=== PATIENT | female | born 1930 | race Caucasian/White ===

== ENCOUNTER 2018-01-14 07:54 | Inpatient (IN) | payer MEDICARE, BC ==
[~2018-01-14] VITALS: Ht 165.1 cm; Wt 59.0 kg
[~2018-01-14 07:54] MED LIST: ATIVAN0.5 MG PO; ATROVENT 0.02%2.5 ML UPD; BENZONATATE200 MG PO; CARDIZEM CD180 MG PO; CARDIZEM60 MG PO; CLARITIN10 MG/TAB PO; CORGARD20 MG PO; COUMADIN3 MG PO; COUMADIN4 MG PO; COUMADIN5 MG PO; CRESTOR5 MG PO; LEVAQUIN750 MG PO; MUCINEX DM ER1 EAC1 PO; PEPCID20 MG PO; PRILOSEC20 MG PO; PROBIOTIC1 EAC1 PO; PROVENTIL/2.5 MG/3 M INH; REGLAN5 MG PO; REMERON15 MG PO; TOPROL XL25 MG
[2018-01-14 08:43] LABS: BASOPHILS 0 % (0-2); EOSINOPHILS 0 % (0-7); HEMATOCRIT 38.8 % (36.0-48.0); HEMOGLOBIN 13.3 g/dL (12-16); LYMPHOCYTES 7.1 % (15-50); MCH 32.5 pg (26.0-34.0); MCHC 34.3 g/dL (31.0-37.0); MCV 94.9 fL (80.0-100.0); MEAN PLATELET VOLUME 9.5 fL (7.4-10.4); MONOCYTES 8.1 % (2-11); NEUTROPHILS 84.8 % (40-80); PLATELET COUNT 108 10x3/uL (130-400); RBC 4.09 10x6/uL (4.00-5.40); RDW 13.4 % (11.5-14.5); WBC 4.1 10x3/uL (4.8-10.8)
[2018-01-14 08:58] LABS: ALBUMIN 3.3 g/dL (3.4-5.0); BILIRUBIN - TOTAL 0.61 mg/dL (0.2-1.3); CALCIUM 8.2 mg/dL (8.5-10.1); CARBON DIOXIDE 21.9 mmol/L (21.0-32.0); POTASSIUM - SERUM 3.9 mmol/L (3.5-5.1)
[2018-01-14 10:11] LABS: APPEARANCE HAZY (CLEAR); BILIRUBIN NEGATIVE (NEGATIVE); COLOR YELLOW (YELLOW); GLUCOSE NEGATIVE (NEGATIVE); KETONE SMALL mg/dL (NEGATIVE); NITRITE NEGATIVE (NEGATIVE); PROTEIN NEGATIVE (NEGATIVE); SPECIFIC GRAVITY 1.015 (1.005-1.020); UROBILINOGEN NORMAL (NORMAL)
[2018-01-14 10:20] LABS: BACTERIA MODERATE /hpf (NONE SEEN); EPITHELIAL CELLS 0-5 /hpf (0-5); MUCUS >1+ /lpf (NONE SEEN); RED CELLS - URINE 0-5 /hpf (0-5); WHITE CELLS - URINE 0-5 /hpf (0-5)
[2018-01-14] MEDS ORDERED: SINGULAIR10 MG PO (15:44)
[2018-01-14] MEDS ORDERED: XANAX0.25 MG PO (15:46)
[2018-01-14] MEDS ORDERED: BETAPACE 80 MG80 MG PO (15:46)
[2018-01-14] MEDS ORDERED: LIPITOR20 MG PO (15:46)
[2018-01-14 18:11] VITALS: BMI 21.6
[2018-01-14 20:00] VITALS: BP 139/68
[2018-01-15] VITALS: BP 114/49
[2018-01-15 04:00] VITALS: BP 115/45
[2018-01-15 06:11] LABS: BASOPHILS 0.2 % (0-2); EOSINOPHILS 0 % (0-7); HEMATOCRIT 40.4 % (36.0-48.0); HEMOGLOBIN 13.9 g/dL (12-16); LYMPHOCYTES 9.1 % (15-50); MCH 32.7 pg (26.0-34.0); MCHC 34.4 g/dL (31.0-37.0); MCV 95.1 fL (80.0-100.0); MEAN PLATELET VOLUME 9.5 fL (7.4-10.4); MONOCYTES 5.6 % (2-11); NEUTROPHILS 85.1 % (40-80); PLATELET COUNT 98 10x3/uL (130-400); RBC 4.25 10x6/uL (4.00-5.40); RDW 13.6 % (11.5-14.5); WBC 4.6 10x3/uL (4.8-10.8)
[2018-01-15 06:30] LABS: INR 2.28 (0.85-1.17); PROTIME 24.5 SECONDS (11.6-15.0)
[2018-01-15 07:13] LABS: PLATELET ESTIMATE DECREASED
[2018-01-15 07:22] LABS: ALBUMIN 2.8 g/dL (3.4-5.0); ANION GAP 14.7 mmol/L (8-16); BILIRUBIN - TOTAL 0.46 mg/dL (0.2-1.3); CALCIUM 7.9 mg/dL (8.5-10.1); CARBON DIOXIDE 24.5 mmol/L (21.0-32.0); CREATININE - SERUM 0.9 mg/dL (0.6-1.3); MAGNESIUM - SERUM 1.9 mg/dL (1.8-2.4); PHOSPHOROUS 3.9 mg/dL (2.5-4.9); POTASSIUM - SERUM 4.2 mmol/L (3.5-5.1); PROTEIN - SERUM 6.8 g/dL (6.4-8.2)
[2018-01-15 08:27] VITALS: BP 113/59
[2018-01-15 12:29] VITALS: BP 105/51
[2018-01-15 14:23] VITALS: BMI 21.6
[2018-01-15 16:48] VITALS: BP 110/65
[2018-01-15 20:00] VITALS: BP 124/69
[2018-01-16 04:00] VITALS: BP 172/61
[2018-01-16 07:15] LABS: BASOPHILS 0.2 % (0-2); EOSINOPHILS 0 % (0-7); HEMATOCRIT 43.7 % (36.0-48.0); HEMOGLOBIN 14.9 g/dL (12-16); LYMPHOCYTES 12.2 % (15-50); MCHC 34.1 g/dL (31.0-37.0); MEAN PLATELET VOLUME 9.6 fL (7.4-10.4); MONOCYTES 3.9 % (2-11); NEUTROPHILS 83.7 % (40-80); PLATELET COUNT 97 10x3/uL (130-400); RBC 4.65 10x6/uL (4.00-5.40); RDW 13.3 % (11.5-14.5); WBC 5.2 10x3/uL (4.8-10.8)
[2018-01-16 07:31] LABS: INR 2.55 (0.85-1.17); PROTIME 26.8 SECONDS (11.6-15.0)
[2018-01-16 07:54] LABS: ALBUMIN 2.8 g/dL (3.4-5.0); ANION GAP 15.3 mmol/L (8-16); BILIRUBIN - TOTAL 0.41 mg/dL (0.2-1.3); CALCIUM 8.4 mg/dL (8.5-10.1); PHOSPHOROUS 2.3 mg/dL (2.5-4.9); POTASSIUM - SERUM 4.3 mmol/L (3.5-5.1)
[2018-01-16 08:39] VITALS: Ht 165.1 cm; Wt 59.0 kg
[2018-01-16 09:15] VITALS: BP 113/44
[2018-01-16 14:25] VITALS: BP 107/78
[2018-01-16 17:06] VITALS: BP 104/44
[2018-01-16 20:00] VITALS: BP 109/51
[2018-01-17 04:00] VITALS: BP 97/49
[2018-01-17 06:42] LABS: BASOPHILS 0.7 % (0-2); EOSINOPHILS 0.2 % (0-7); HEMATOCRIT 40.5 % (36.0-48.0); HEMOGLOBIN 14.1 g/dL (12-16); IMMATURE GRANULOCYTES 0.2 % (0-5); MCH 32.5 pg (26.0-34.0); MCHC 34.8 g/dL (31.0-37.0); MCV 93.3 fL (80.0-100.0); MONOCYTES 8.4 % (2-11); NEUTROPHILS 59.5 % (40-80); PLATELET COUNT 92 10x3/uL (130-400); RBC 4.34 10x6/uL (4.00-5.40); RDW 13.2 % (11.5-14.5); WBC 4.2 10x3/uL (4.8-10.8)
[2018-01-17 07:03] LABS: INR 1.61 (0.85-1.17); PROTIME 18.7 SECONDS (11.6-15.0)
[2018-01-17 07:16] LABS: ALBUMIN 2.4 g/dL (3.4-5.0); BILIRUBIN - TOTAL 0.4 mg/dL (0.2-1.3); CARBON DIOXIDE 24.2 mmol/L (21.0-32.0); CREATININE - SERUM 0.8 mg/dL (0.6-1.3); PHOSPHOROUS 2.5 mg/dL (2.5-4.9); PROTEIN - SERUM 6.3 g/dL (6.4-8.2)
[2018-01-17 07:18] LABS: ANION GAP 11.3 mmol/L (8-16); POTASSIUM - SERUM 3.5 mmol/L (3.5-5.1)
[2018-01-17 09:30] VITALS: BP 101/41
[2018-01-17 12:25] VITALS: BP 103/52
[2018-01-17 17:10] VITALS: BP 98/46
[2018-01-17 20:00] VITALS: BP 106/45
[2018-01-18] VITALS: BP 97/54
[2018-01-18 05:23] LABS: BASOPHILS 0.7 % (0-2); EOSINOPHILS 0.5 % (0-7); HEMATOCRIT 37.7 % (36.0-48.0); LYMPHOCYTES 40.2 % (15-50); MCH 32.3 pg (26.0-34.0); MCHC 34.5 g/dL (31.0-37.0); MCV 93.5 fL (80.0-100.0); MEAN PLATELET VOLUME 9.8 fL (7.4-10.4); MONOCYTES 7.6 % (2-11); PLATELET COUNT 94 10x3/uL (130-400); RBC 4.03 10x6/uL (4.00-5.40); RDW 13.2 % (11.5-14.5); WBC 4.1 10x3/uL (4.8-10.8)
[2018-01-18 05:33] LABS: INR 1.51 (0.85-1.17); PROTIME 17.7 SECONDS (11.6-15.0)
[2018-01-18 05:41] LABS: ALBUMIN 2.3 g/dL (3.4-5.0); ANION GAP 11.4 mmol/L (8-16); BILIRUBIN - TOTAL 0.3 mg/dL (0.2-1.3); CALCIUM 7.8 mg/dL (8.5-10.1); CARBON DIOXIDE 26.5 mmol/L (21.0-32.0); CREATININE - SERUM 0.9 mg/dL (0.6-1.3); MAGNESIUM - SERUM 2.2 mg/dL (1.8-2.4); PHOSPHOROUS 2.7 mg/dL (2.5-4.9); POTASSIUM - SERUM 3.9 mmol/L (3.5-5.1); PROTEIN - SERUM 5.5 g/dL (6.4-8.2)
[2018-01-18 06:20] VITALS: BP 104/44
[2018-01-18 07:56] VITALS: BP 94/52
[2018-01-18 11:54] VITALS: BP 99/38
[2018-01-18 16:09] VITALS: BP 107/47
[2018-01-18 20:00] VITALS: BP 111/45
[2018-01-19] VITALS: BP 120/53
[2018-01-19 05:48] LABS: BASOPHILS 0.5 % (0-2); EOSINOPHILS 0.8 % (0-7); HEMATOCRIT 34.6 % (36.0-48.0); HEMOGLOBIN 11.7 g/dL (12-16); LYMPHOCYTES 41.5 % (15-50); MCH 31.7 pg (26.0-34.0); MCHC 33.8 g/dL (31.0-37.0); MCV 93.8 fL (80.0-100.0); MONOCYTES 8.5 % (2-11); NEUTROPHILS 48.7 % (40-80); PLATELET COUNT 110 10x3/uL (130-400); RBC 3.69 10x6/uL (4.00-5.40); RDW 13.3 % (11.5-14.5); WBC 3.9 10x3/uL (4.8-10.8)
[2018-01-19 06:02] LABS: ANION GAP 10.8 mmol/L (8-16); BILIRUBIN - TOTAL 0.44 mg/dL (0.2-1.3); CALCIUM 7.2 mg/dL (8.5-10.1); CARBON DIOXIDE 24.9 mmol/L (21.0-32.0); CREATININE - SERUM 0.8 mg/dL (0.6-1.3); MAGNESIUM - SERUM 2.1 mg/dL (1.8-2.4); PHOSPHOROUS 3.1 mg/dL (2.5-4.9); POTASSIUM - SERUM 3.7 mmol/L (3.5-5.1)
[2018-01-19 06:04] LABS: INR 1.38 (0.85-1.17); PROTIME 16.5 SECONDS (11.6-15.0)
[2018-01-19 07:56] VITALS: BP 112/50
[2018-01-19 12:11] VITALS: BP 104/55
[2018-01-19 15:55] VITALS: BP 106/53
[2018-01-19 20:00] VITALS: BP 110/69
[2018-01-20 04:00] VITALS: BP 115/70
[2018-01-20 05:52] LABS: BASOPHILS 0.2 % (0-2); EOSINOPHILS 1.5 % (0-7); HEMATOCRIT 33.2 % (36.0-48.0); HEMOGLOBIN 11.4 g/dL (12-16); IMMATURE GRANULOCYTES 0.2 % (0-5); LYMPHOCYTES 33.1 % (15-50); MCHC 34.3 g/dL (31.0-37.0); MCV 93.3 fL (80.0-100.0); MEAN PLATELET VOLUME 10.4 fL (7.4-10.4); MONOCYTES 10.7 % (2-11); NEUTROPHILS 54.3 % (40-80); RBC 3.56 10x6/uL (4.00-5.40); RDW 13.5 % (11.5-14.5); WBC 4.1 10x3/uL (4.8-10.8)
[2018-01-20 05:56] LABS: PLATELET COUNT 136 10x3/uL (130-400)
[2018-01-20 06:20] LABS: ANION GAP 9.6 mmol/L (8-16); CALCIUM 7.6 mg/dL (8.5-10.1); CARBON DIOXIDE 25.8 mmol/L (21.0-32.0); CREATININE - SERUM 0.8 mg/dL (0.6-1.3); INR 1.13 (0.85-1.17); POTASSIUM - SERUM 3.4 mmol/L (3.5-5.1)
[2018-01-20 08:23] VITALS: BP 95/51
[2018-01-20 12:33] VITALS: BP 107/49
[2018-01-20 16:19] VITALS: BP 115/41
[2018-01-20 22:58] VITALS: BP 124/76
[2018-01-21 05:32] VITALS: BP 129/56
[2018-01-21 08:16] VITALS: BP 126/57
[2018-01-21 11:44] LABS: HEMATOCRIT 34.8 % (36.0-48.0); HEMOGLOBIN 11.8 g/dL (12-16)
[2018-01-21 12:01] LABS: INR 1.25 (0.85-1.17); PROTIME 15.3 SECONDS (11.6-15.0)
[2018-01-21 12:25] VITALS: BP 120/50
[2018-01-21] MEDS ORDERED: FEXOFENADINE HC60 MG PO (14:46)
[2018-01-21] MEDS ORDERED: LOVENOX40 MG/0.4 SC (14:47)
[2018-01-21] MEDS ORDERED: PROTONIX40 MG PO (14:47)
[2018-01-21] MEDS ORDERED: PEPCID20 MG PO (14:48)
== END 2018-01-21 17:43 | disposition home health service (06) | DRG 872 ==
LOC: D.ER 07:54 → D.EDHOLD 11:15 → D.MS 11:15 → OBSVTIME 11:15 → D.MS 12:23 → D.SDCHOLD 01-19 07:30 → D.MS 01-19 07:32
PROVIDERS: Emergency Medicine; Family Medicine; Internal Medicine Gastroenterology; Internal Medicine Nephrology
PROC: 0D738ZZ Dilation of Lower Esophagus, Via Natural or Artificial Opening Endoscopic (ICD-10-PCS; 2018-01-18)
PROC: 0DB78ZX Excision of Stomach, Pylorus, Via Natural or Artificial Opening Endoscopic, Diagnostic (ICD-10-PCS; principal; 2018-01-18 19:00)
DX: A41.9 Sepsis, unspecified organism (principal); N39.0 Urinary tract infection, site not specified; J44.0 Chronic obstructive pulmonary disease with (acute) lower respiratory infection; J44.1 Chronic obstructive pulmonary disease with (acute) exacerbation; J20.9 Acute bronchitis, unspecified; K21.0 Gastro-esophageal reflux disease with esophagitis; I48.91 Unspecified atrial fibrillation; F41.9 Anxiety disorder, unspecified; Z95.0 Presence of cardiac pacemaker; R13.10 Dysphagia, unspecified; K22.2 Esophageal obstruction; K44.9 Diaphragmatic hernia without obstruction or gangrene; K22.4 Dyskinesia of esophagus; K29.70 Gastritis, unspecified, without bleeding; D69.6 Thrombocytopenia, unspecified; J30.9 Allergic rhinitis, unspecified

== ENCOUNTER 2021-01-17 19:52 | Emergency (ER) | payer MEDICARE, BC ==
[2018-01-16 08:39] VITALS: Ht 165.1 cm; Wt 61.4 kg
[~2021-01-17] VITALS: Ht 165.1 cm; Wt 61.4 kg
[~2021-01-17 19:52] MED LIST changes: +BETAPACE 80 MG80 MG PO; +FEXOFENADINE HC60 MG PO; +LIPITOR20 MG PO; +LOVENOX40 MG/0.4 SC; +PROTONIX40 MG PO; +SINGULAIR10 MG PO; +XANAX0.25 MG PO
[2021-01-17 20:44] LABS: BASOPHILS 0.2 % (0-2); EOSINOPHILS 1.5 % (0-7); HEMATOCRIT 38.4 % (36.0-48.0); HEMOGLOBIN 12.7 g/dL (12-16); LYMPHOCYTE ABS# 1.56 10x3/uL (1.18-3.74); LYMPHOCYTES 25.7 % (15-50); MCH 32.1 pg (26.0-34.0); MCHC 33.1 g/dL (31.0-37.0); MEAN PLATELET VOLUME 9.4 fL (7.4-10.4); MONOCYTES 11.5 % (2-11); NEUTROPHIL ABS# 3.72 10x3/uL (1.56-6.13); NEUTROPHILS 61.1 % (40-80); PLATELET COUNT 160 10x3/uL (130-400); RBC 3.96 10x6/uL (4.00-5.40); RDW 13.4 % (11.5-14.5); WBC 6.1 10x3/uL (4.8-10.8)
[2021-01-17 20:51] LABS: APTT 44.2 SECONDS (22.8-39.4); CALC OSMOLALITY 276 mosm/kg (275-300); CALCIUM 8.8 mg/dL (8.5-10.1); CARBON DIOXIDE 29.2 mmol/L (21.0-32.0); CHLORIDE - SERUM 103 mmol/L (98-107); CREATININE - SERUM 0.8 mg/dL (0.6-1.3); GLUCOSE 105 mg/dL (74-106); INR 3.05 (0.85-1.17); POTASSIUM - SERUM 4.4 mmol/L (3.5-5.1); PROTIME 29.3 SECONDS (11.6-15.0); SODIUM 138 mmol/L (136-145); UREA NITROGEN 15 mg/dL (7-18); eGFR NON AFRICAN AMERICAN 72 mL/min (90-120)
[2021-01-17 21:06] LABS: ALBUMIN 3.2 g/dL (3.4-5.0); ALKALINE PHOSPHATASE 87 U/L (30-120); ALT (SGPT) 12 U/L (10-68); BILIRUBIN - TOTAL 0.37 mg/dL (0.2-1.3); CKMB 1.1 U/L (0.0-3.6); CREATINE KINASE 47 UL (21-215); MAGNESIUM - SERUM 2.1 mg/dL (1.8-2.4); PROTEIN - SERUM 6.7 g/dL (6.4-8.2)
[2021-01-17 21:07] LABS: TROPONIN-I < 0.017 ng/mL (0.000-0.060)
[2021-01-17 22:08] VITALS: BP 135/53
== END 2021-01-17 22:09 | disposition home or self-care (01) ==
LOC: D.ER 19:52
PROVIDERS: Family Medicine
DX: T36.8X5A Adverse effect of other systemic antibiotics, initial encounter (principal); S81.809A Unspecified open wound, unspecified lower leg, initial encounter; I48.91 Unspecified atrial fibrillation